=== PATIENT | female | born 1945 | race Caucasian/White ===

== ENCOUNTER 2017-01-17 11:32 | Inpatient (IN) | payer MEDICARE ==
[~2017-01-17] VITALS: Ht 157.5 cm; Wt 64.4 kg
[~2017-01-17 11:32] MED LIST: AMLO5TAB2 PO; CARV-39 PO; CARV6.252 PO; LOPE2CAP PO; OMEP40CA6 PO; OXYB5TAB7 PO; PRAV20TA2 PO
[2017-01-17] MEDS ORDERED: MAALOX/HYOSCYAMINE/LIDOCAINE 45 ML BOTTLE ONE (12:17)
[2017-01-17] MEDS ORDERED: ONDANSETRON 2MG/ML, 2ML ONE (12:17)
[2017-01-17] MEDS ORDERED: methylPREDNISolone SOD SUCC 125 MG/2 ML ONE (12:17)
[2017-01-17] MEDS ORDERED: FAMOTIDINE 20 MG/2 ML ONE ×2 (12:17→12:18)
[2017-01-17 12:30] LABS: PATH.CAST-FLAG NOT PRESENT; SPERM-FLAG NOT PRESENT; SRC-FLAG NOT PRESENT; XTAL-FLAG NOT PRESENT; YLC-FLAG NOT PRESENT
[2017-01-17] MEDS ORDERED: ALBUTEROL/IPRATROPIUM 2.5MG/0.5MG, 3 ML NPPB ONE (12:30)
[2017-01-17] MEDS ORDERED: FAMOTIDINE 20 MG/2 ML IVP ONE (12:30)
[2017-01-17] MEDS ORDERED: SODIUM CHLORIDE FLUSH 10ML SYR IVF ONE (12:30)
[2017-01-17] MEDS ORDERED: ONDANSETRON 2MG/ML, 2ML IVPush ONE (12:30)
[2017-01-17] MEDS ORDERED: SODIUM CHLORIDE 0.9% 1,000ML IVBOLUS ONE (12:30)
[2017-01-17] MEDS ORDERED: methylPREDNISolone SOD SUCC 125 MG/2 ML IVP ONE (12:30)
[2017-01-17] MEDS ORDERED: MAALOX/HYOSCYAMINE/LIDOCAINE 45 ML BOTTLE PO ONE (12:30)
[2017-01-17 12:57] LABS: ASPARTATE AMINO TRANSFERASE 13 U/L (15-37); BLOOD UREA NITROGEN 14 mg/dL (7-18)
[2017-01-17] MEDS ORDERED: CEFTRIAXONE PMX 1GM/50ML 50 ML IV ONE (13:00)
[2017-01-17 13:02] LABS: IS PT STATUS REG ER OR PRE ER? YES
[2017-01-17] MEDS ORDERED: ASPIRIN 81 MG TABLET CHEW PO ONE (14:00)
[2017-01-17] MEDS ORDERED: NS + 20MEQ KCL 1,000 ML IV SCH (14:36)
[2017-01-17] MEDS ORDERED: ASPIRIN 81 MG TABLET CHEW ONE (14:55)
[2017-01-17] MEDS ORDERED: CEFTRIAXONE PMX 1GM/50ML 50 ML ONE (14:55)
[2017-01-17] MEDS ORDERED: LOPERAMIDE 2 MG CAPSULE PO PRN (15:00)
[2017-01-17] MEDS ORDERED: CEFTRIAXONE PMX 1GM/50ML 50 ML IV SCH (15:00)
[2017-01-17] MEDS ORDERED: MORPHINE SULFATE 4 MG/ML, 1ML IVPush PRN (15:00)
[2017-01-17] MEDS ORDERED: ACETAMINOPHEN 325 MG TABLET PO PRN (15:00)
[2017-01-17] MEDS ORDERED: DOCUSATE 100 MG CAPSULE PO PRN (15:00)
[2017-01-17] MEDS ORDERED: POLYETHYLENE GLYCOL 17 GM PACKET PO PRN (15:00)
[2017-01-17] MEDS ORDERED: ONDANSETRON 2MG/ML, 2ML IVP PRN (15:00)
[2017-01-17 16:15] VITALS: BP 156/83
[2017-01-17] MEDS: ENOXAPARIN 40 MG/0.4 ML SQ SCH (17:05)
[2017-01-17 19:01] VITALS: BP 112/66
[2017-01-17] MEDS ORDERED: ZOLPIDEM 5MG TABLET PO PRN (20:00)
[2017-01-17] MEDS: CARVEDILOL 25 MG TABLET PO SCH (20:57)
[2017-01-17] MEDS: PRAVASTATIN 20 MG TABLET PO SCH (20:57)
[2017-01-18 00:50] VITALS: BP 129/77
[2017-01-18 06:03] LABS: BLOOD UREA NITROGEN 17 mg/dL (7-18)
[2017-01-18 07:24] VITALS: BP 149/82
[2017-01-18] MEDS: OXYBUTYNIN CHLORIDE 5 MG TABLET PO SCH (08:25)
[2017-01-18] MEDS: CARVEDILOL 25 MG TABLET PO SCH ×2 (08:25→20:41)
[2017-01-18 15:01] VITALS: BP 130/67
[2017-01-18] MEDS: ENOXAPARIN 40 MG/0.4 ML SQ SCH (15:40)
[2017-01-18 16:18] VITALS: BP 147/79
[2017-01-18] MEDS ORDERED: CEFTRIAXONE PMX 1GM/50ML 50 ML IV SCH (17:00)
[2017-01-18 19:45] VITALS: BP 133/77
[2017-01-18] MEDS: HYDROcodone/APAP 5/325 TABLET PO PRN (20:40)
[2017-01-18] MEDS: PRAVASTATIN 20 MG TABLET PO SCH (20:40)
[2017-01-19 02:23] VITALS: BP 128/72
[2017-01-19] MEDS: HYDROcodone/APAP 5/325 TABLET PO PRN (02:29)
[2017-01-19 07:02] VITALS: BP 153/79
[2017-01-19] MEDS: CARVEDILOL 25 MG TABLET PO SCH (09:06)
[2017-01-19] MEDS: OXYBUTYNIN CHLORIDE 5 MG TABLET PO SCH (09:06)
[2017-01-19 12:34] VITALS: BP 159/78
[2017-01-19] MEDS ORDERED: CEFD300C2 PO (14:53)
== END 2017-01-19 17:22 | disposition home or self-care (01) | DRG 191 ==
LOC: ED 12:50 → EDIP 14:03 → 5SO 16:15 → 3NE 01-18 16:07
PROVIDERS: ADMIT Internal Medicine; ATTEND Family Medicine
DX: J44.1 Chronic obstructive pulmonary disease with (acute) exacerbation (principal); N39.0 Urinary tract infection, site not specified; B96.20 Unspecified Escherichia coli [E. coli] as the cause of diseases classified elsewhere; D50.9 Iron deficiency anemia, unspecified; E78.5 Hyperlipidemia, unspecified; I10 Essential (primary) hypertension; K21.9 Gastro-esophageal reflux disease without esophagitis; R07.9 Chest pain, unspecified; F41.9 Anxiety disorder, unspecified; Z66 Do not resuscitate; Z79.82 Long term (current) use of aspirin; Z82.3 Family history of stroke; Z82.49 Family history of ischemic heart disease and other diseases of the circulatory system; Z83.3 Family history of diabetes mellitus; Z87.440 Personal history of urinary (tract) infections; Z86.19 Personal history of other infectious and parasitic diseases; Z87.891 Personal history of nicotine dependence; Z87.19 Personal history of other diseases of the digestive system; Z79.899 Other long term (current) drug therapy; Z90.49 Acquired absence of other specified parts of digestive tract; Z98.51 Tubal ligation status
CPT/HCPCS: 36415; 71010; 80048; 80053; 81001; 82728; 83540; 83550; 83690; 83880; 84466; 84484; 85025; 86677; 87077; 87086; 87186; 93005; 96361; 96374; 96375; J0696; J1650; J2405; J3480; J2930; J7030; S0028

== ENCOUNTER 2017-01-23 14:11 | Emergency (ER) | payer MEDICARE ==
[~2017-01-23] VITALS: Ht 157.5 cm; Wt 60.0 kg
[~2017-01-23 14:11] MED LIST changes: +CEFD300C2 PO
[2017-01-23 14:26] VITALS: BP 159/87
[2017-01-23 15:23] LABS: PATH.CAST-FLAG NOT PRESENT; SPERM-FLAG NOT PRESENT; SRC-FLAG NOT PRESENT; XTAL-FLAG NOT PRESENT; YLC-FLAG NOT PRESENT
== END 2017-01-23 16:34 | disposition home or self-care (01) ==
LOC: ED 14:18
DX: S39.012A Strain of muscle, fascia and tendon of lower back, initial encounter (principal); M47.896 Other spondylosis, lumbar region; J44.9 Chronic obstructive pulmonary disease, unspecified; I10 Essential (primary) hypertension; Z87.891 Personal history of nicotine dependence; X58.XXXA Exposure to other specified factors, initial encounter; Y93.89 Activity, other specified; Y92.89 Other specified places as the place of occurrence of the external cause; Y99.9 Unspecified external cause status
CPT/HCPCS: 72110; 81001; 87086; 99285

== ENCOUNTER 2020-03-06 09:04 | Day surgery (SDC) | payer MEDICARE ==
[~2020-03-06] VITALS: Ht 157.5 cm; Wt 63.9 kg
[~2020-03-06 09:04] MED LIST changes: +AMLO-150 PO; -AMLO5TAB2 PO; -CEFD300C2 PO; +CEFD300C37 PO; +OMEP40CA42 PO; -OMEP40CA6 PO; +OXYB5TAB10 PO; -OXYB5TAB7 PO
[2020-03-06] MEDS ORDERED: LACTATED RINGERS 1,000 ML IV SCH (09:38)
[2020-03-06 09:43] VITALS: BP 152/85
[2020-03-06] MEDS ORDERED: CHLORHEXIDINE 15 ML UDC ONE (09:45)
[2020-03-06] MEDS ORDERED: CHLORHEXIDINE 15 ML UDC MM ONE (10:00)
[2020-03-06] MEDS ORDERED: LISI-170 PO (10:02)
[2020-03-06 10:04] VITALS: BP 152/85
[2020-03-06 10:40] LABS: ALBUMIN 2.6 g/dL (3.4-5.0); ANION GAP 10 mmol/L (5-15); CALCIUM 8.3 mg/dL (8.5-10.1); CHLORIDE 110 mmol/L (98-107)
[2020-03-06 10:44] LABS: ALANINE AMINOTRANSFERASE 8 U/L (12-78); ALKALINE PHOSPHATASE 67 U/L (45-117); BILIRUBIN,TOTAL 0.1 mg/dL (0.2-1.0); CREATININE 0.68 mg/dL (0.55-1.02); TOTAL PROTEIN 5.9 g/dL (6.4-8.2)
[2020-03-06] MEDS ORDERED: LABETALOL 5MG/ML, 20ML IV PRN (11:30)
[2020-03-06] MEDS ORDERED: ACETAMINOPHEN 325 MG TABLET PO PRN (11:30)
[2020-03-06] MEDS ORDERED: hydrALAzine 20 MG/ML, 1ML IV PRN (11:30)
[2020-03-06] MEDS ORDERED: EPHEDRINE 50 MG/ML, 1ML IVPush PRN (11:30)
[2020-03-06] MEDS ORDERED: FENTANYL PF 100 MCG/2ML IV PRN (11:30)
[2020-03-06] MEDS ORDERED: ONDANSETRON 2MG/ML, 2ML IVPush PRN (11:30)
[2020-03-06] MEDS ORDERED: PROMETHAZINE 25 MG/ML, 1ML IVPush PRN (11:30)
[2020-03-06] MEDS ORDERED: OXYcodone 5 MG/5 ML ORAL.SOL UDC PO PRN (11:30)
[2020-03-06] MEDS ORDERED: MEPERIDINE/PF 25MG/0.5ML IVPush PRN (11:30)
[2020-03-06] MEDS ORDERED: HYDROmorphone 1 MG/ML, 1ML INJ IVPush PRN (11:30)
[2020-03-06] MEDS ORDERED: PROPOFOL 50 ML ONE (13:45)
== END 2020-03-06 16:00 | disposition home or self-care (01) ==
LOC: OUT 09:04
PROVIDERS: ATTEND Internal Medicine Geriatric Medicine
DX: A04.71 Enterocolitis due to Clostridium difficile, recurrent (principal); Z03.818 Encounter for observation for suspected exposure to other biological agents ruled out; I10 Essential (primary) hypertension; E78.5 Hyperlipidemia, unspecified; Z79.899 Other long term (current) drug therapy; Z90.49 Acquired absence of other specified parts of digestive tract; Z98.51 Tubal ligation status; Z98.890 Other specified postprocedural states; Z83.3 Family history of diabetes mellitus; Z82.49 Family history of ischemic heart disease and other diseases of the circulatory system
CPT/HCPCS: 36415; 45378; 80053; G0455; J2704; J7120